=== PATIENT | female | born 1945 | race Two or more races ===

== ENCOUNTER 2025-01-10 05:51 | Emergency (ER) | payer MEDICARE, BC, SELFPAY ==
[2025-01-10 05:51] VITALS: BMI 27.9
[2025-01-10 05:57] VITALS: BP 106/76; PULSE 76; RESP 18; TEMP 36.9; O2SAT 97
--- NOTE | 2025-01-10 06:31 | XR_ITS ---
Examination: Hand, left 3 views Technique: Hand AP, oblique, lateral 3 views Date and time of exam: January 10, 2025 0545 hours INDICATIONS: Hand swelling and pain today FINDINGS: Severe osteopenia Advanced osteoarthritis first carpometacarpal joint Erosive arthritis involving distal interphalangeal joints Soft tissue swelling dorsum of the wrist No definite acute fracture IMPRESSION: Arthritic change as above Soft tissue swelling dorsum of the wrist No definite acute fracture Consider follow-up wrist films as clinically warranted
--- NOTE | 2025-01-10 06:37 | PD.EDHAND ---
Upper Extremity Injury RME/HPI General Chief Complaint: Hand/Wrist Problems Stated Complaint: LEFT WRIST SWELLING AND PAIN X 3DAYS Time Seen by Provider: 01/10/25 06:16 Source: patient and family Arrival date/time: 01/10/25 05:51 This is a 79-year-old female who presents to the emergency department company with family members for complaints of left wrist pain For 3 days. According to the family member the patient was in the room and attempted to sit up and extended her arm on the bed and began to have pain family members and noticed swelling and redness tenderness to wrist joint no other complaints. Mode of arrival: ambulatory Limitations: no limitations Related Data Home Medications ?Medication ?Instructions ?Recorded ?Confirmed alprazolam 0.5 mg tablet (Xanax) 0.5 mg PO BID PRN Anxiety 03/17/18 04/13/22 Held on 04/16/22. Instructions: Resume on 04/17/22. donepezil 10 mg tablet 1 tab PO HS 04/13/22 04/13/22 furosemide 20 mg tablet 1 tab PO DAILY 04/13/22 04/13/22 prednisone 20 mg tablet 1 tab PO DAILY 04/13/22 04/13/22 levothyroxine 125 mcg tablet 1 tab PO QDAY 04/16/22 04/16/22 Previous Rx's ?Medication ?Instructions ?Recorded meloxicam 7.5 mg tablet 7.5 mg PO QDAY #10 tabs 10/08/22 Allergies Allergy/AdvReac Type Severity Reaction Status Date / Time No Known Drug Allergies Allergy Verified 02/28/24 10:40 Review of Systems Review of Systems Systems Reviewed: All systems reviewed, normal except as documented Narrative Review of Systems: Gen: No fever, no chills, no weight loss EYES: No discharge, no visual changes, no pain HEENT: No ear pain, no congestion, no sore throat PULM: No shortness of breath, no cough, no congestion CV: No chest pain, no dyspnea on exertion, no palpitations GI: No nausea, no vomiting, no diarrhea, no pain, no constipation : No frequency, no urgency, no dysuria Musc/skel: + wrist left pain, no back pain Skin: No rash Psyc: No hallucinations, no depression Heme/Lymph: No easy bleeding or bruising tendencies Neuro: No weakness, no headache ED Exam Narrative Physical exam: chronically ill-appearing 79-year-old female appears to be in pain General Limitations: Present no limitations General appearance: Present alert and in distress Head Head exam: Present atraumatic Eye Eye exam: Present normal appearance, PERRL and EOMI ENT ENT exam: Present normal exam, normal oropharynx and mucous membranes moist Neck Neck exam: Present normal inspection, full ROM and trachea midline Chest Chest inspection: Present normal inspection and symmetric chest wall rise Respiratory Respiratory exam: Present normal lung sounds bilaterally Cardiovascular Cardiovascular exam: Present regular rate, normal rhythm and normal heart sounds Abdominal Exam Abdominal exam: Present soft and normal bowel sounds Extremities Exam Extremities exam: Present full ROM Expanded Upper Extremity Exam Shoulder exam: Present normal inspection Arm exam: Present normal inspection Elbow exam: Present normal inspection Forearm/Wrist exam: Present tenderness ( mild to moderate swelling dorsum of left wrist.+ Warm to touch) and swelling Back Exam Back exam: Present normal inspection and full ROM Neurological Exam Neurological exam: Present alert, oriented X3 and CN II-XII intact Psychiatric Psychiatric exam: Present normal affect and normal mood Skin Skin exam: Present warm, dry, intact and normal color Course Quality Measures none Orders Category Date Time Status XR hand comp LT min 3V Stat Exams 01/10/25 06:31 Completed predniSONE Med 01/10/25 06:31 Discontinued 40 mg PO X1 ONE traMADol HCL [Ultram] Med 01/10/25 06:32 Discontinued 50 mg PO X1 ONE Vital Signs Vital signs: Vital Signs Temperature 98.4 F 01/10/25 05:57 Pulse Rate 76 01/10/25 05:57 Respiratory Rate 18 01/10/25 05:57 Blood Pressure 106/76 01/10/25 05:57 Pulse Oximetry (%) 97 01/10/25 05:57 Oxygen Delivery Method Room Air 01/10/25 05:57 Extremity Injury Patient data External records reviewed:: [facility] previous records Clinical information provided by:: patient Social determinants that could affect healthcare access:: none Patient has the following chronic illnesses:: dementia, CHF, hypothyroidism, How is presenting disease/condition affected by chronic disease/condition?: uneffected by Evaluation data The following diagnostics were reviewed and interpreted by me:: radiology exam(s) Lab and/or radiology exams considered but not ordered:: no laboratories Interpretation Summary: Examination: Hand, left 3 views Technique: Hand AP, oblique, lateral 3 views Date and time of exam: January 10, 2025 0545 hours INDICATIONS: Hand swelling and pain today FINDINGS: Severe osteopenia Advanced osteoarthritis first carpometacarpal joint Erosive arthritis involving distal interphalangeal joints Soft tissue swelling dorsum of the wrist No definite acute fracture IMPRESSION: Arthritic change as above Soft tissue swelling dorsum of the wrist No definite acute fracture Consider follow-up wrist films as clinically warranted Medications / Prescriptions Medications or Prescriptions considered but not ordered:: no Medication administrations:: Medication Administration History Discontinued Medications Prednisone (Prednisone 20 Mg Tablet) 40 mg PO X1 ONE Stop: 01/10/25 06:32 Last Admin: 01/10/25 06:52 Dose: 40 mg Documented By: LORY Tramadol HCl (Tramadol Hcl 50 Mg Tablet) 50 mg PO X1 ONE Stop: 01/10/25 06:33 Last Admin: 01/10/25 06:53 Dose: 50 mg Documented By: LORY all medications administered and effective Consultations Consultation(s) initiated? (list below): No Diagnosis Upper Extremity Injury Differential Diagnosis: sprain and strain of wrist, fracture of wrist, finger sprain, dislocation of finger and fracture of hand Most likely diagnosis given after review of the tests above:: osteoarthritis flareup Admission Indicated Admission indicated?: not indicated Admission Request Was there a request for admission?: No Disposition Plan Disposition Plan: Discharge Discharge Attestation Discharge Attestation: The patient and all family members were given an opportunity to ask questions and understood the discharge instructions. Discharge instructions specifically effects, indications for sooner follow up or return to the emergency department, and the expected course of current diagnosis. Patient condition: Stable Discharge Plan Plan Patient Disposition: HOME (Self Care) Patient condition on transfer: Stable Prescriptions/Referrals Prescriptions/Med Rec: No Action donepezil 10 mg tablet 1 tab PO HS Patient Comments: TAKE 1 TABLET BY MOUTH ONCE DAILY AT BEDTIME FOR MEMORY furosemide 20 mg tablet 1 tab PO DAILY Patient Comments: TAKE 1 TABLET BY MOUTH ONCE DAILY prednisone 20 mg tablet 1 tab PO DAILY levothyroxine 125 mcg tablet 1 tab PO QDAY Patient Comments: TAKE 1 TABLET BY MOUTH ONCE DAILY IN THE MORNING ON AN EMPTY STOMACH BEFORE BREAKFAST FOR THYROID FOR 90 DAYS alprazolam [Xanax] 0.5 mg Tablet 0.5 mg PO BID PRN (Reason: Anxiety) meloxicam 7.5 mg tablet 7.5 mg PO QDAY Qty: 10 0RF Referrals: Temporary Provider,ED [Physician] - In 1 week Problem List Clinical Impression: Primary osteoarthritis, right wrist Patient/Caregiver Discharge Instructions Discharge Activity: activity as tolerated Education Materials: ED Osteoarthritis Additional Instructions: Your x-ray of your wrist shows moderate advanced osteoarthritis Keep your hand in a splint I will send you medication for pain, An anti-inflammatory for the next 4 days. Follow-up with your primary doctor Return the emergency department this any worsening symptoms or change in condition.. Print Language: Wolof Stand Alone Forms: Radha Award Info., Patient Portal Info Letter PA/FIELD SUPPORT TECHNICIAN Supervising Physician PA/FIELD SUPPORT TECHNICIAN Supervising Physician: Dr. Maradiaga
[2025-01-10] MEDS: predniSONE 20 MG TABLET 40 MG PO (06:52)
[2025-01-10] MEDS: traMADol HCL 50 MG TABLET PO (06:53)
== END 2025-01-10 08:43 | disposition home or self-care (01) ==
PROVIDERS: Emergency Provider Emergency Medicine; PCP Family Medicine
DX: M19.032 Primary osteoarthritis, left wrist (principal)
CPT/HCPCS: 73130; 99283; J7512; A9270

== ENCOUNTER → 2025-03-02 | Outpatient (CLI) | payer MEDICARE, BC, SELFPAY ==
[2025-03-02 10:57] LABS: Alanine Aminotransferase 20 U/L (10-49); Albumin, Serum 3.8 gm/dL (3.4-4.8); Albumin/Globulin Ratio 1.3 (1.2-2.2); Alkaline Phosphatase 155 U/L (46-116); Anion Gap 8 (7-16); Aspartate Amino Transferase 31 U/L (0-34); BUN/Creatinine Ratio 17 Ratio (12-20); Bilirubin,Total 0.4 mg/dL (0.3-1.2); Blood Urea Nitrogen 24 mg/dL (9-23); Calcium 8.6 mg/dL (8.3-10.6); Calcium (Corrected) 8.8 mg/dL (8.5-10.1); Chloride 107 mMol/L (98-107); Creatinine (Component) 1.4 mg/dL (0.6-1.3); Glucose 93 mg/dL (74-106); Osmolality,Calculated 283 (275-295); Potassium 4.4 mMol/L (3.4-5.1); Sodium 140 mMol/L (136-145); Total Protein 6.8 gm/dL (5.7-8.2); eGFR 39 See Note
== END | disposition home or self-care (01) ==
PROVIDERS: PCP Family Medicine; Referring Provider Nurse Practitioner; Visit Provider Nurse Practitioner
DX: N17.9 Acute kidney failure, unspecified (principal)
CPT/HCPCS: 36415; 80053

== ENCOUNTER → 2025-04-20 | Outpatient (CLI) | payer MEDICARE, BC, SELFPAY ==
--- NOTE | 2025-04-20 10:40 | XR_ITS ---
Examination: PA lateral chest 2 views TECHNIQUE: Upright PA lateral chest 2 views Date and time: April 26, 2025 1051 hours Comparison February 28, 2024 INDICATIONS: Leg edema body edema, clinical diagnosis CHF FINDINGS: Normal heart size Ectatic thoracic aorta. Increased AP dimension chest. Mild accentuation basilar bronchovascular markings. No pneumonia or pulmonary edema Severe osteopenia with chronic osteoporotic compressions dorsal vertebral bodies IMPRESSION: Mild bronchitis pattern. No CHF or pneumonia
[2025-04-20 11:32] LABS: Basophils # (Auto) 0.0 Thou/mm3 (0.0-0.2); Basophils % (Auto) 0 % (0-2.5); Eosinophils # (Auto) 0.0 Thou/mm3 (0.0-0.5); Eosinophils % (Auto) 1 % (0-10); Hematocrit 34.8 % (36.0-46.0); Hemoglobin 10.9 g/dL (12.0-16.0); Immature Granulocytes Auto 0.01 Thou/mm3 (0.00-0.00); Lymphocytes # (Auto) 0.9 Thou/mm3 (1.0-4.8); Lymphocytes % (Auto) 40 % (10-50); Mean Corpuscular HGB Conc 31.3 g/dl (31.0-37.0); Mean Corpuscular Hemoglobin 31.1 pg (25.0-35.0); Mean Corpuscular Volume 99 fL (80-100); Monocytes # (Auto) 0.3 Thou/mm3 (0.0-0.8); Monocytes % (Auto) 12 % (0-12); Neutrophils # (Auto) 1.0 Thou/mm3 (1.8-7.7); Neutrophils % (Auto) 47 % (37-80); Nucleated Red Blood Cell # 0.00 Thou/mm3 (0.00-0.00); Nucleated Red Blood Cell % 0 /100 WBC (0); Platelet Count 121 Thou/mm3 (140-440); RDW Standard Deviation 59.4 fL (36.4-46.3); Red Blood Count 3.51 Miln/mm3 (4.00-5.20)
[2025-04-20 11:39] LABS: Collection Type, Urine Clean Catch
[2025-04-20 11:44] LABS: Glucose Estimated Average 91 mg/dL (80-131); Hemoglobin A1C 4.8 % Hgb (4.8-6.0)
[2025-04-20 11:48] LABS: Parathyroid Hormone Intact 122.1 pg/ml (18.5-88.0)
[2025-04-20 11:52] LABS: White Blood Count 2.2 Thou/mm3 (3.6-11.0)
[2025-04-20 11:53] LABS: Vitamin B12 614 pg/mL (211-911); Vitamin D 25 Hydroxy Total 36.1 ng/mL (7.3-40.2)
[2025-04-20 11:54] LABS: Alanine Aminotransferase 21 U/L (10-49); Albumin, Serum 3.6 gm/dL (3.4-4.8); Albumin/Globulin Ratio 1.2 (1.2-2.2); Alkaline Phosphatase 144 U/L (46-116); Anion Gap 5 (7-16); Aspartate Amino Transferase 43 U/L (0-34); BUN/Creatinine Ratio 12 Ratio (12-20); Bilirubin,Total 0.6 mg/dL (0.3-1.2); Blood Urea Nitrogen 19 mg/dL (9-23); Calcium 9.0 mg/dL (8.3-10.6); Calcium (Corrected) 9.3 mg/dL (8.5-10.1); Carbon Dioxide 24.7 mMol/L (20.0-31.0); Cardiac Risk Estimate 2.8 RATIO (3.7-5.6); Chloride 109 mMol/L (98-107); Cholesterol 91 mg/dL (132-200); Creatinine (Component) 1.6 mg/dL (0.6-1.3); Free T4 (Free Thyroxine) 0.63 ng/dL (0.89-1.76); Globulin 2.9 gm/dL (2.3-3.5); Glucose 79 mg/dL (74-106); HDL Cholesterol 32 mg/dL (40-60); LDL Cholesterol,Calculated 30 mg/dL (0-130); Osmolality,Calculated 278 (275-295); Potassium 5.0 mMol/L (3.4-5.1); Sodium 139 mMol/L (136-145); Thyroid Stimulating Hormone 42.63 uIU/mL (0.55-4.78); Total Protein 6.5 gm/dL (5.7-8.2); Triglycerides 145 mg/dL (30-150); Uric Acid 8.5 mg/dL (3.1-7.8); eGFR 33 See Note
[2025-04-20 12:10] LABS: Bacteria,Urine Rare; Bilirubin,Urine Negative (Negative); Blood,Urine Negative (Negative); Clarity,Urine Clear (Clear/Hazy); Color,Urine Lt-Yellow (Lt Yel-Yel); Glucose, Urine Negative (Negative); Hyaline Casts,Urine < 1 /hpf (0-1); Ketones,Urine Negative (Negative); Leukocyte Esterase,Urine Positive (Negative); Nitrite,Urine Negative (Negative); PH,Urine 6.0 (5.0-7.0); Protein,Urine Negative (Neg - Trace); RBC,Urine 1 /hpf (0-3); Specific Gravity,Urine 1.012 (1.001-1.035); Squamous Epithelial Cell,Urine 7 /hpf (0-5); Urobilinogen,Urine Negative mg/dL (0.0-1.0); WBC,Urine 2 /hpf (0-5)
[2025-04-20 12:24] LABS: Creatinine MALB Rnd Ur 94 mg/dL (30-125); Microalbumin Creat Ratio 3 mg/gCrea (<30); Microalbumin, Random Urine 3 mg/L (0-300)
== END | disposition home or self-care (01) ==
LOC: CDIM 10:38 → COPL 11:00
PROVIDERS: PCP Internal Medicine; Referring Provider Internal Medicine; Visit Provider Radiology Diagnostic Radiology
DX: N17.9 Acute kidney failure, unspecified (principal); I10 Essential (primary) hypertension; E11.9 Type 2 diabetes mellitus without complications; E78.5 Hyperlipidemia, unspecified; E03.9 Hypothyroidism, unspecified; D51.9 Vitamin B12 deficiency anemia, unspecified; E55.9 Vitamin D deficiency, unspecified
CPT/HCPCS: 36415; 71046; 80053; 80061; 81001; 82043; 82306; 82570; 82607; 83036; 83970; 84439; 84443; 84550; 85025

== ENCOUNTER → 2025-05-04 | Outpatient (CLI) | payer MEDICARE, BC, SELFPAY ==
--- NOTE | 2025-05-04 14:30 | XR_ITS ---
Examination: Retroperitoneal ultrasound, complete Technique: Multiple high resolution grayscale images of the retroperitoneum obtained, including kidneys and bladder. Exam date and time:May 04, 2025 1430 hours Comparison January 25, 2022 INDICATIONS: Acute renal insufficiency on laboratory examination this week FINDINGS: Right kidney 9.2 cm renal cortex 1.1 cm Left kidney 9.5 cm cortex 1.7 cm Mild bilateral renal pedicles, formation Contracted urinary bladder, bladder prevoid volume 98 cc IMPRESSION: Small kidneys with bilateral renal cortical thinning Mild bilateral renal pedicle scar formation. No hydronephrosis
== END | disposition home or self-care (01) ==
LOC: CDIM 14:10
PROVIDERS: PCP Internal Medicine; Referring Provider Internal Medicine; Visit Provider Internal Medicine
DX: N27.1 Small kidney, bilateral (principal); N28.89 Other specified disorders of kidney and ureter
CPT/HCPCS: 76770

== ENCOUNTER 2025-05-15 20:15 | Emergency (ER) | payer MEDICARE, BC, SELFPAY ==
[2025-05-15 20:23] VITALS: BP 147/92; PULSE 91; RESP 18; TEMP 36.8; O2SAT 98
--- NOTE | 2025-05-15 20:54 | EKG_ITS ---
[facility] Test Date: 2025-05-15 Pat Name: MILA VALDOVINOS Department: Room: - Gender: Female Portfolio Architect: : 1945 Requested By: Judit Guadalupe Order Number: [id number] Reading MD: Judit Guadalupe Measurements Intervals [place] Rate: 71 P: 24 [place]: 197 QRS: -20 QRSD: 84 T: 23 QT: 392 QTc: 426 Interpretive Statements SINUS RHYTHM WITH SINUS ARRHYTHMIA LOW QRS VOLTAGE IN PRECORDIAL LEADS [QRS DEFLECTION < 1.0 mV IN CHEST LEADS] POSSIBLE ANTERIOR MYOCARDIAL INFARCTION , PROBABLY OLD [30 ms Q WAVE IN V3/V4, OR R < 0.2 mV IN V4] Compared to ECG 10/08/2022 17:02:09 Low QRS voltage now present Myocardial infarct finding still present /store/S0/[id number].pdf
--- NOTE | 2025-05-15 20:54 | XR_ITS ---
Examination: AP chest single view TECHNIQUE: AP portable upright chest single view Date and time: May 15, 2025, 2058 hours INDICATIONS: Congestion coughing today. FINDINGS: Normal heart size Mild ectasia of thoracic aorta. Minor subsegmental atelectasis left base. No pneumonia or pulmonary edema IMPRESSION: No pneumonia or pulmonary edema
--- NOTE | 2025-05-15 20:55 | PD.EDADULT ---
ED General RME/HPI General Chief complaint: General Adult/Misc Complain Stated complaint: SWELLING TO LIPS AND MOUTH WITH BLEEDING Time Seen by Provider: 05/15/25 20:41 Arrival date/time: 05/15/25 20:15 RME / HPI RME / HPI narrative: 79-year-old female patient with significant history of anxiety, dementia, congestive heart failure, hypothyroidism hypertension was brought in by family for evaluation regarding swelling to the lips. Patient started to have swelling to the lips after patient started on Bumex, last Saturday patient took 2 days of Bumex. Yesterday noticed blister formation, and started to bleed out. Few minutes prior to ER visit it bleeds out again lasting for few minutes. Currently patient is not bleeding. Patient denies any chest pain. She is not taking any blood thinner. Related Data Home Medications ?Medication ?Instructions ?Recorded ?Confirmed alprazolam 0.5 mg tablet (Xanax) 0.5 mg PO BID PRN Anxiety 03/17/18 04/13/22 Held on 04/16/22. Instructions: Resume on 04/17/22. donepezil 10 mg tablet 1 tab PO HS 04/13/22 04/13/22 furosemide 20 mg tablet 1 tab PO DAILY 04/13/22 04/13/22 prednisone 20 mg tablet 1 tab PO DAILY 04/13/22 04/13/22 levothyroxine 125 mcg tablet 1 tab PO QDAY 04/16/22 04/16/22 Previous Rx's ?Medication ?Instructions ?Recorded meloxicam 7.5 mg tablet 7.5 mg PO QDAY #10 tabs 10/08/22 Allergies Allergy/AdvReac Type Severity Reaction Status Date / Time No Known Drug Allergies Allergy Verified 05/15/25 20:16 Review of Systems Review of Systems Narrative Review of Systems: Review of system reviewed and within normal limits except mentioned in HPI ED Exam Narrative Physical exam: VITAL SIGNS: Reviewed. GENERAL APPEARANCE: Alert and interactive, follows commands, no acute distress, HEAD AND FACE: Non-traumatic. ENT: PERRL, pink conjunctivitis, eyelid no trauma, bilateral upper and lower lips with excoriation, no active bleeding noted, however dried blood noted. Slightly swollen NECK: Supple, nontender, no nuchal rigidity. CHEST: No tenderness, no crepitus, no paradoxical movement, no retractions. LUNGS: Clear, well ventilated, symmetric, no rales, no wheezing, no ronchi, no stridor, good breath sounds bilaterally. HEART: Regular rate, regular rhythm, no murmur, no gallops. ABDOMEN: Soft, positive bowel sounds, nondistended, no guarding, nontender, no rebound, no masses, RECTAL: Deferred. GENITAL: Deferred. NEUROLOGICAL: Gross motor function intact sensory function intact, Appropriate for age. MUSCULOSKELETAL: low back nontender, full range of motion. EXTREMITIES: Nontender, full range of motion. SKIN: Color pink, dry, no rash, no lacerations, no abrasions, no contusions. LYMPHATICS: Deferred. Course Quality Measures none Orders Category Date Time Status EKG (ED ONLY) *Do not use* NOW Care 05/15/25 20:55 Completed EKG (ED Only) Stat Exams 05/15/25 20:54 Draft XR chest 1V Stat Exams 05/15/25 20:54 Completed B-Type Natriuretic Peptide Stat Lab 05/15/25 21:12 Completed CBC Stat Lab 05/15/25 21:12 Completed Comprehensive Metabolic Panel Stat Lab 05/15/25 21:12 Completed Partial Thromboplastin Time Stat Lab 05/15/25 21:12 Completed Prothrombin Time with INR Stat Lab 05/15/25 21:12 Completed Troponin I Stat Lab 05/15/25 21:12 Completed Vital Signs Vital signs: Vital Signs Temperature 98.3 F 05/15/25 20:23 Pulse Rate 91 05/15/25 20:23 Respiratory Rate 18 05/15/25 20:23 Blood Pressure 147/92 H 05/15/25 20:23 Pulse Oximetry (%) 98 05/15/25 20:23 Oxygen Delivery Method Room Air 05/15/25 20:23 Discharge Plan Plan Patient Disposition: HOME (Self Care) Discharge Disposition comment: Stable Prescriptions/Referrals Prescriptions/Med Rec: No Action donepezil 10 mg tablet 1 tab PO HS Patient Comments: TAKE 1 TABLET BY MOUTH ONCE DAILY AT BEDTIME FOR MEMORY furosemide 20 mg tablet 1 tab PO DAILY Patient Comments: TAKE 1 TABLET BY MOUTH ONCE DAILY prednisone 20 mg tablet 1 tab PO DAILY levothyroxine 125 mcg tablet 1 tab PO QDAY Patient Comments: TAKE 1 TABLET BY MOUTH ONCE DAILY IN THE MORNING ON AN EMPTY STOMACH BEFORE BREAKFAST FOR THYROID FOR 90 DAYS alprazolam [Xanax] 0.5 mg Tablet 0.5 mg PO BID PRN (Reason: Anxiety) meloxicam 7.5 mg tablet 7.5 mg PO QDAY Qty: 10 0RF Referrals: Dawson Cool FNP [Primary Care Provider] - In 1 week Problem List Clinical Impression: Lip swelling, Bleeding Patient/Caregiver Discharge Instructions Discharge Activity: activity as tolerated Education Materials: First Aid: Bleeding Additional Instructions: Thank you for the opportunity for serving you today. You are stable for discharged . You are advised to: Follow-up with your PCP in 1 to 2 days Return to ED for worsening of symptoms Increase oral fluids Continue taking Benadryl as needed Apply moisturizing cream to the lips Print Language: Tajik Stand Alone Forms: Radha Award Info., Patient Portal Info Letter PORTER Supervising Physician PORTER Supervising Physician: MD Calvin [facility] Narrative MDM hospital course: 79-year-old female patient with significant history of anxiety, dementia, congestive heart failure, hypothyroidism hypertension was brought in by family for evaluation regarding swelling to the lips. Patient started to have swelling to the lips after patient started on Bumex, last Saturday patient took 2 days of Bumex. Yesterday noticed blister formation, and started to bleed out. Few minutes prior to ER visit it bleeds out again lasting for few minutes. Currently patient is not bleeding. Patient denies any chest pain. She is not taking any blood thinner. Patient CBC showed hemoglobin of 10.6 hematocrit of 34.6. Platelet 81 creatinine 1.6 BUN is normal. EKG showed normal sinus rhythm, ventricular rate of 71 bpm, no ST segment elevation depression noted. I personally reviewed and interpreted the x-ray of this patient. There is no acute abnormalities found, no infiltrates no pneumothorax no hemothorax normal chest x-ray. Review of other structures was without significant abnormal findings also. I additionally reviewed the radiologist report and agree with the interpretation. There is no recurrence of bleeding noted in the ED. Patient was noted to be drinking water with no problem. Her lips is slightly swollen. She is stable for discharge home. Advised her to follow-up closely with her electronics installer and PCP next week. Dispositon Disposition: Discharge Home
[2025-05-15 21:14] VITALS: BMI 28.5
[2025-05-15 21:19] LABS: Basophils # (Auto) 0.0 Thou/mm3 (0.0-0.2); Basophils % (Auto) 0 % (0-2.5); Eosinophils # (Auto) 0.0 Thou/mm3 (0.0-0.5); Eosinophils % (Auto) 1 % (0-10); Hematocrit 34.6 % (36.0-46.0); Hemoglobin 10.6 g/dL (12.0-16.0); Immature Granulocytes Auto 0.02 Thou/mm3 (0.00-0.00); Lymphocytes # (Auto) 1.0 Thou/mm3 (1.0-4.8); Lymphocytes % (Auto) 45 % (10-50); Mean Corpuscular HGB Conc 30.6 g/dl (31.0-37.0); Mean Corpuscular Hemoglobin 30.9 pg (25.0-35.0); Mean Corpuscular Volume 101 fL (80-100); Monocytes # (Auto) 0.2 Thou/mm3 (0.0-0.8); Monocytes % (Auto) 10 % (0-12); Neutrophils # (Auto) 1.0 Thou/mm3 (1.8-7.7); Neutrophils % (Auto) 44 % (37-80); Nucleated Red Blood Cell # 0.00 Thou/mm3 (0.00-0.00); Nucleated Red Blood Cell % 0 /100 WBC (0); Platelet Count 81 Thou/mm3 (140-440); RDW Standard Deviation 64.5 fL (36.4-46.3); Red Blood Count 3.43 Miln/mm3 (4.00-5.20)
[2025-05-15 21:31] LABS: White Blood Count 2.2 Thou/mm3 (3.6-11.0)
[2025-05-15 21:42] LABS: INR 1.1 (0.9-1.3); Partial Thromboplastin Time 28.1 Seconds (22.0-36.0); Prothrombin Time 12.4 Seconds (9.0-12.2)
[2025-05-15 21:45] LABS: Alanine Aminotransferase 18 U/L (10-49); Albumin, Serum 3.9 gm/dL (3.4-4.8); Albumin/Globulin Ratio 1.2 (1.2-2.2); Alkaline Phosphatase 135 U/L (46-116); Anion Gap 10 (7-16); Aspartate Amino Transferase 35 U/L (0-34); BUN/Creatinine Ratio 11 Ratio (12-20); Bilirubin,Total 0.5 mg/dL (0.3-1.2); Blood Urea Nitrogen 18 mg/dL (9-23); Calcium 9.5 mg/dL (8.3-10.6); Calcium (Corrected) 9.6 mg/dL (8.5-10.1); Carbon Dioxide 22.4 mMol/L (20.0-31.0); Chloride 110 mMol/L (98-107); Creatinine (Component) 1.6 mg/dL (0.6-1.3); Estimated Creatinine Clearance 23.9 mL/min (>60); Globulin 3.2 gm/dL (2.3-3.5); Glucose 90 mg/dL (74-106); Osmolality,Calculated 285 (275-295); Potassium 4.5 mMol/L (3.4-5.1); Sodium 142 mMol/L (136-145); Total Protein 7.1 gm/dL (5.7-8.2); Troponin I < 0.020 ng/mL (0.0-0.045); eGFR 33 See Note
[2025-05-15 21:48] LABS: B-Type Natriuretic Peptide 89 pg/mL (0-100)
== END 2025-05-15 23:15 | disposition home or self-care (01) ==
PROVIDERS: Nurse Practitioner Family; PCP Nurse Practitioner Family
DX: R22.0 Localized swelling, mass and lump, head (principal); R58 Hemorrhage, not elsewhere classified; R09.89 Other specified symptoms and signs involving the circulatory and respiratory systems; I49.8 Other specified cardiac arrhythmias
CPT/HCPCS: 36415; 71045; 80053; 81001; 83880; 84484; 85025; 85610; 85730; 93005; 99283

== ENCOUNTER → 2025-07-07 | Outpatient (CLI) | payer MEDICARE, BC, SELFPAY ==
[2025-07-07 12:22] LABS: Parathyroid Hormone Intact 104.0 pg/ml (18.5-88.0)
[2025-07-07 12:33] LABS: Albumin, Serum 3.8 gm/dL (3.4-4.8); Anion Gap 8 (7-16); BUN/Creatinine Ratio 13 Ratio (12-20); Blood Urea Nitrogen 22 mg/dL (9-23); Calcium 9.3 mg/dL (8.3-10.6); Calcium (Corrected) 9.5 mg/dL (8.5-10.1); Carbon Dioxide 26.0 mMol/L (20.0-31.0); Chloride 103 mMol/L (98-107); Creatinine (Component) 1.7 mg/dL (0.6-1.3); Free T4 (Free Thyroxine) 1.03 ng/dL (0.89-1.76); Glucose 96 mg/dL (74-106); Osmolality,Calculated 277 (275-295); Phosphorous 1.9 mg/dL (2.4-5.1); Potassium 5.7 mMol/L (3.4-5.1); Sodium 137 mMol/L (136-145); Thyroid Stimulating Hormone 23.24 uIU/mL (0.55-4.78); eGFR 31 See Note
== END | disposition home or self-care (01) ==
LOC: COPL 11:13
PROVIDERS: PCP Nurse Practitioner Family; Referring Provider Internal Medicine; Visit Provider Internal Medicine
DX: I12.9 Hypertensive chronic kidney disease with stage 1 through stage 4 chronic kidney disease, or unspecified chronic kidney disease (principal); N18.30 Chronic kidney disease, stage 3 unspecified; E03.9 Hypothyroidism, unspecified; Z12.11 Encounter for screening for malignant neoplasm of colon
CPT/HCPCS: 36415; 80069; 83970; 84439; 84443

== ENCOUNTER → 2025-07-26 | Outpatient (CLI) | payer MEDICARE, BC, SELFPAY ==
[2025-07-26 12:28] LABS: Basophils # (Auto) 0.0 Thou/mm3 (0.0-0.2); Basophils % (Auto) 0 % (0-2.5); Eosinophils # (Auto) 0.0 Thou/mm3 (0.0-0.5); Eosinophils % (Auto) 1 % (0-10); Hematocrit 34.8 % (36.0-46.0); Hemoglobin 10.8 g/dL (12.0-16.0); Immature Granulocytes Auto 0.01 Thou/mm3 (0.00-0.00); Lymphocytes # (Auto) 0.9 Thou/mm3 (1.0-4.8); Lymphocytes % (Auto) 38 % (10-50); Mean Corpuscular HGB Conc 31.0 g/dl (31.0-37.0); Mean Corpuscular Hemoglobin 31.7 pg (25.0-35.0); Mean Corpuscular Volume 102 fL (80-100); Monocytes # (Auto) 0.2 Thou/mm3 (0.0-0.8); Monocytes % (Auto) 10 % (0-12); Neutrophils # (Auto) 1.1 Thou/mm3 (1.8-7.7); Neutrophils % (Auto) 51 % (37-80); Nucleated Red Blood Cell # 0.00 Thou/mm3 (0.00-0.00); Nucleated Red Blood Cell % 0 /100 WBC (0); Platelet Count 87 Thou/mm3 (140-440); RDW Standard Deviation 61.1 fL (36.4-46.3); Red Blood Count 3.41 Miln/mm3 (4.00-5.20); White Blood Count 2.2 Thou/mm3 (3.6-11.0)
[2025-07-26 12:33] LABS: Ferritin 37 ng/mL (7.3-270.7); Iron 157 mcg/dL (50-170); Percent Iron Saturation 46 % (20-55); Total Iron Binding Capacity 339 mcg/dL (250-425); Unsaturated Iron Binding 182 (225-295)
[2025-07-26 12:34] LABS: Albumin, Serum 4.0 gm/dL (3.4-4.8); Anion Gap 10 (7-16); BUN/Creatinine Ratio 11 Ratio (12-20); Blood Urea Nitrogen 15 mg/dL (9-23); Calcium 9.6 mg/dL (8.3-10.6); Calcium (Corrected) 9.6 mg/dL (8.5-10.1); Carbon Dioxide 25.0 mMol/L (20.0-31.0); Chloride 104 mMol/L (98-107); Creatinine (Component) 1.4 mg/dL (0.6-1.3); Glucose 79 mg/dL (74-106); Osmolality,Calculated 277 (275-295); Phosphorous 3.1 mg/dL (2.4-5.1); Potassium 4.6 mMol/L (3.4-5.1); Sodium 139 mMol/L (136-145); eGFR 39 See Note
== END | disposition home or self-care (01) ==
LOC: COPL 11:28
PROVIDERS: PCP Nurse Practitioner Family; Referring Provider Internal Medicine; Visit Provider Internal Medicine
DX: N17.9 Acute kidney failure, unspecified (principal)
CPT/HCPCS: 36415; 80069; 82728; 83540; 83550; 85025

== ENCOUNTER → 2025-07-30 | Outpatient (CLI) | payer MEDICARE, BC, SELFPAY ==
--- NOTE | 2025-07-30 13:00 | XR_ITS ---
Examination: Bone densitometry Date and time of exam: July 30, 2025, 1141 hours INDICATIONS: Hysterectomy age 46 rheumatoid arthritis diagnosis Technique: Lumbar spine and hip total bone mineralization values of an calculated. Peak reference and age match control results have been displayed. Findings: Lumbar spine total bone mineralization is 1.037 gm/cm2. This is 0.2 standard deviations above peak reference. This is 2.7 standard deviations above age-matched controls. Hip total bone mineralization is 0.787 gm/cm2 This is 1.3 standard deviations below peak reference. This is 0.7 standard deviations above age-matched controls Impression: There is normal mineralization based on lumbar spine measurements. There lumbar mineralization is increased 1.8% compared with September 08, 2020. Hip mineralization is decreased 9.3% compared with September 08, 2020 Lumbar mineralization is increased 1.8% compared with September 08, 2020 Hip mineralization is decreased 9.3% compared with September 08, 2020
== END | disposition home or self-care (01) ==
LOC: CDIM 11:04
PROVIDERS: Referring Provider Nurse Practitioner Family; Visit Provider Nurse Practitioner Family
DX: M89.8X0 Other specified disorders of bone, multiple sites (principal)
CPT/HCPCS: 77080

== ENCOUNTER → 2025-08-30 | Outpatient (CLI) | payer MEDICARE, BC, SELFPAY ==
[2025-08-30 08:53] LABS: Misc Send Out* See Sep Rpt
[2025-08-30 09:54] LABS: Basophils # (Auto) 0.0 Thou/mm3 (0.0-0.2); Basophils % (Auto) 0 % (0-2.5); Eosinophils # (Auto) 0.0 Thou/mm3 (0.0-0.5); Eosinophils % (Auto) 1 % (0-10); Hematocrit 35.7 % (36.0-46.0); Hemoglobin 11.0 g/dL (12.0-16.0); Immature Granulocytes Auto 0.02 Thou/mm3 (0.00-0.00); Immature Reticulocyte Fraction 16.8 % (3.0-15.9); Lymphocytes # (Auto) 0.9 Thou/mm3 (1.0-4.8); Lymphocytes % (Auto) 33 % (10-50); Mean Corpuscular HGB Conc 30.8 g/dl (31.0-37.0); Mean Corpuscular Hemoglobin 31.4 pg (25.0-35.0); Mean Corpuscular Volume 102 fL (80-100); Monocytes # (Auto) 0.3 Thou/mm3 (0.0-0.8); Monocytes % (Auto) 12 % (0-12); Neutrophils # (Auto) 1.4 Thou/mm3 (1.8-7.7); Neutrophils % (Auto) 54 % (37-80); Nucleated Red Blood Cell # 0.00 Thou/mm3 (0.00-0.00); Nucleated Red Blood Cell % 0 /100 WBC (0); Platelet Count 84 Thou/mm3 (140-440); RDW Standard Deviation 56.3 fL (36.4-46.3); Red Blood Count 3.50 Miln/mm3 (4.00-5.20); Reticulocyte % (Auto) 1.9 % (0.5-1.5); Reticulocyte Absolute Auto 65.5 Biln/L (25.0-75.0); Reticulocyte Hgb Content 30.8 pg (28.0-35.0); White Blood Count 2.6 Thou/mm3 (3.6-11.0)
[2025-08-30 10:12] LABS: Glucose Estimated Average 100 mg/dL (80-131); Hemoglobin A1C 5.1 % Hgb (4.8-6.0)
[2025-08-30 10:21] LABS: Folate 19.25 ng/mL (>5.38); Vitamin B12 1531 pg/mL (211-911)
[2025-08-30 10:23] LABS: Ferritin 33 ng/mL (7.3-270.7); Total Iron Binding Capacity 332 mcg/dL (250-425)
[2025-08-30 10:38] LABS: Albumin, Serum 3.6 gm/dL (3.4-4.8); Anion Gap 8 (7-16); BUN/Creatinine Ratio 10 Ratio (12-20); Blood Urea Nitrogen 13 mg/dL (9-23); Calcium 8.7 mg/dL (8.3-10.6); Calcium (Corrected) 9.0 mg/dL (8.5-10.1); Carbon Dioxide 27.6 mMol/L (20.0-31.0); Chloride 107 mMol/L (98-107); Creatinine (Component) 1.3 mg/dL (0.6-1.3); Glucose 82 mg/dL (74-106); Osmolality,Calculated 284 (275-295); Phosphorous 2.9 mg/dL (2.4-5.1); Potassium 4.1 mMol/L (3.4-5.1); Sodium 143 mMol/L (136-145); eGFR 42 See Note
== END | disposition home or self-care (01) ==
LOC: COPL 08:26
PROVIDERS: PCP Nurse Practitioner Family; Referring Provider Nurse Practitioner Family; Visit Provider Internal Medicine
DX: E11.22 Type 2 diabetes mellitus with diabetic chronic kidney disease (principal); N18.30 Chronic kidney disease, stage 3 unspecified; D63.1 Anemia in chronic kidney disease
CPT/HCPCS: 36415; 80069; 82607; 82728; 82746; 83036; 83550; 84466; 85025; 85046

== ENCOUNTER → 2025-10-05 | Outpatient (CLI) | payer MEDICARE, BC, SELFPAY ==
[2025-10-05 09:46] LABS: Basophils # (Auto) 0.0 Thou/mm3 (0.0-0.2); Basophils % (Auto) 0 % (0-2.5); Eosinophils # (Auto) 0.0 Thou/mm3 (0.0-0.5); Eosinophils % (Auto) 0 % (0-10); Hematocrit 35.1 % (36.0-46.0); Hemoglobin 11.0 g/dL (12.0-16.0); Immature Granulocytes Auto 0.01 Thou/mm3 (0.00-0.00); Lymphocytes # (Auto) 1.0 Thou/mm3 (1.0-4.8); Lymphocytes % (Auto) 41 % (10-50); Mean Corpuscular HGB Conc 31.3 g/dl (31.0-37.0); Mean Corpuscular Hemoglobin 31.7 pg (25.0-35.0); Mean Corpuscular Volume 101 fL (80-100); Monocytes # (Auto) 0.3 Thou/mm3 (0.0-0.8); Monocytes % (Auto) 12 % (0-12); Neutrophils # (Auto) 1.1 Thou/mm3 (1.8-7.7); Neutrophils % (Auto) 46 % (37-80); Nucleated Red Blood Cell # 0.00 Thou/mm3 (0.00-0.00); Nucleated Red Blood Cell % 0 /100 WBC (0); Platelet Count 97 Thou/mm3 (140-440); RDW Standard Deviation 60.5 fL (36.4-46.3); Red Blood Count 3.47 Miln/mm3 (4.00-5.20); White Blood Count 2.4 Thou/mm3 (3.6-11.0)
[2025-10-05 09:54] LABS: B-Type Natriuretic Peptide 69 pg/mL (0-100)
[2025-10-05 10:14] LABS: Alanine Aminotransferase 29 U/L (10-49); Albumin, Serum 3.6 gm/dL (3.4-4.8); Albumin/Globulin Ratio 1.0 (1.2-2.2); Alkaline Phosphatase 190 U/L (46-116); Anion Gap 6 (7-16); Aspartate Amino Transferase 53 U/L (0-34); BUN/Creatinine Ratio 12 Ratio (12-20); Bilirubin,Total 0.5 mg/dL (0.3-1.2); Blood Urea Nitrogen 14 mg/dL (9-23); Calcium 8.9 mg/dL (8.3-10.6); Calcium (Corrected) 9.2 mg/dL (8.5-10.1); Carbon Dioxide 27.3 mMol/L (20.0-31.0); Chloride 106 mMol/L (98-107); Creatinine (Component) 1.2 mg/dL (0.6-1.3); Globulin 3.5 gm/dL (2.3-3.5); Glucose 93 mg/dL (74-106); Magnesium 1.6 mg/dL (1.6-2.6); Osmolality,Calculated 278 (275-295); Potassium 4.5 mMol/L (3.4-5.1); Sodium 139 mMol/L (136-145); Total Protein 7.1 gm/dL (5.7-8.2); eGFR 47 See Note
== END | disposition home or self-care (01) ==
LOC: COPL 08:36
PROVIDERS: PCP Family Medicine; Referring Provider Internal Medicine; Visit Provider Internal Medicine
DX: M79.89 Other specified soft tissue disorders (principal)
CPT/HCPCS: 36415; 80053; 83735; 83880; 85025